=== PATIENT | male | born 1945 | race Caucasian/White ===

== ENCOUNTER → 2017-02-10 | Outpatient (CLI) | payer MEDICARE ==
--- NOTE | 2017-02-10 15:38 | FL ---
EXAMINATION: Upper GI with small bowel follow through DATE: 02/10/2017 CLINICAL INDICATION: 71-year-old male with dyskinesia, complains of esophageal spasms and pain with c old or carbonated beverages. COMPARISON: None Total Fluoroscopy Time: 1.9 minutes FINDINGS: The swallowing mechanism is normal and hypopharyngeal anatomy is preserved. The cervical and thoracic portions have a normal course and caliber. Mild intermittent tertiary peris taltic contractions. The mucosa is normal and no persistent filling defect is encountered. There is a small hiatal hernia and moderate to severe gastroesophageal reflux is seen when the patien t is supine with reflux nearly reaching the thoracic inlet. The stomach and duodenum are free of any persistent filling defect. There is mild diffuse gastric fol d thickening. IMPRESSION: 1. Small hiatal hernia and moderate to severe gastroesophageal reflux when the patient is supine. 2. Occasional mild tertiary peristaltic waves are seen in the esophagus. No imaging findings of esoph ageal spasm. 3. Mild diffuse gastric fold thickening could represent chronic gastritis. Clinically correlate.
== END | disposition home or self-care (01) ==
LOC: RADFLWHC 09:52
PROVIDERS: ATTEND Family Medicine
DX: K44.9 Diaphragmatic hernia without obstruction or gangrene (principal); K21.9 Gastro-esophageal reflux disease without esophagitis; K31.89 Other diseases of stomach and duodenum
CPT/HCPCS: 74246

== ENCOUNTER 2017-03-02 07:47 | Day surgery (SDC) | payer MEDICARE ==
[2017-02-25 13:42] VITALS: BMI 35.7
[~2017-03-02 07:47] MED LIST: LACTATED RINGERS 1,000 ML IV SCH; LIDOCAINE 1% 20 ML VIAL (10MG/ML) FOR IV START INTRADERMA PRN
[2017-03-02 08:19] VITALS: RESP 18; TEMP 97.2
[2017-03-02] MEDS ORDERED: LACTATED RINGERS 1,000 ML IV ONE (08:24)
[2017-03-02] MEDS ORDERED: PROPOFOL 10 MG/ML 20 ML VIAL IV ONE (08:28)
[2017-03-02] MEDS ORDERED: LIDOCAINE 1% INJ 10MG/ML (20 ML MDV) ONE (08:28)
--- NOTE | 2017-03-02 08:42 | P.OP ---
Date of Procedure: 03/02/17 Preoperative Diagnosis: GERD, dysphagia Postoperative Diagnosis: GERD, dysphagia, hiatal hernia, gastritis Procedure(s) Performed: EGD with biopsy Implants: Anesthesia: MAC Surgeon: Angelina Brock Pathology: other (Antrum, esophagus) Condition: stable Disposition: PACU Indications for Procedure: The patient presented with dysphagia symptoms in the mid chest and reflux. Operative Findings: He's taken to the endoscopy suite were gastroscope is passed off to the third and fourth portions of the duodenum. The pharynx unremarkable. The esophagus shows no evidence of significant esophagitis or mass lesion. No stricture. The scope passes easily. There is a small sliding hiatal hernia. He had tertiary contractions of the esophagus. Stomach has bile stained fluid present. There is some mild gastritis throughout. Cold biopsies were obtained in the antrum. The pylorus and duodenum are otherwise unremarkable. No evidence of mass lesion or ulcer. Tolerated the procedure without difficulty and was taken recovery room in satisfactory condition. We'll call with the report of biopsies. Description of Procedure: Plan - Discharge Summary Discharge Medication List Aspirin 81 mg PO DAILY 02/20/14 [History] Cholecalciferol [Vitamin D3] 2,000 unit PO DAILY 02/20/14 [History] Simvastatin [Zocor] 20 mg PO HS 02/20/14 [History] amLODIPine BESYLATE [Norvasc] 5 mg PO HS 02/20/14 [History] Losartan-Hctz 50-12.5 mg [Hyzaar 50-12.5] 1 each PO DAILY 04/08/14 [History] Naproxen Sodium [Aleve] 640 mg PO DAILY 02/25/17 [History] Omeprazole 40 mg PO DAILY 02/25/17 [History] Discharge Disposition: HOME SELF-CARE
[2017-03-02 09:21] VITALS: BP 129/88; PULSE 84
== END 2017-03-02 09:33 | disposition home or self-care (01) ==
LOC: ORWHC2ENDO 07:47
PROVIDERS: ATTEND Surgery
DX: K29.50 Unspecified chronic gastritis without bleeding (principal); K44.9 Diaphragmatic hernia without obstruction or gangrene; K22.4 Dyskinesia of esophagus; R13.10 Dysphagia, unspecified; Z85.51 Personal history of malignant neoplasm of bladder; I10 Essential (primary) hypertension; E78.5 Hyperlipidemia, unspecified; M19.90 Unspecified osteoarthritis, unspecified site; Z79.82 Long term (current) use of aspirin; Z79.1 Long term (current) use of non-steroidal anti-inflammatories (NSAID); Z79.899 Other long term (current) drug therapy; Z88.0 Allergy status to penicillin
CPT/HCPCS: 88305; 88342; 43239; J2001; J2704

== ENCOUNTER → 2017-03-28 | Outpatient (CLI) | payer MEDICARE ==
--- NOTE | 2017-03-28 13:17 | US ---
EXAMINATION TYPE: US gallbladder DATE OF EXAM: 03/28/2017 COMPARISON: NONE CLINICAL HISTORY: K21.9 MAEGAN; hiatal hernia; esophageal spasms,GERD EXAM MEASUREMENTS: Liver Length: 12.3 cm Gallbladder Wall: 0.3 cm CBD: 0.4 cm Right Kidney: 11.0 x 5.8 x 4.7 cm Large body habitus is noted. Pancreas: hyperechoic with tail obscured by overlying bowel gas. Nonspecific finding of hyperechoic appearance to the pancreas may been the basis of fatty infiltration or atrophic changes. Correlate c linically. Liver: poorly seen and scanned LLD and intercostally due to overlying bowel gas Gallbladder: wnl Evidence for sonographic Andersen's sign: No CBD: wnl Right Kidney: wnl IMPRESSION: 1. No definite acute process. Correlate clinically. Limited exam as discussed above.
== END | disposition home or self-care (01) ==
LOC: RADUSWWP 12:21
PROVIDERS: ATTEND Surgery
DX: K21.9 Gastro-esophageal reflux disease without esophagitis (principal)
CPT/HCPCS: 76705

== ENCOUNTER → 2017-04-13 | Outpatient (CLI) | payer MEDICARE ==
--- NOTE | 2017-04-13 08:32 | XR ---
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 COMPARISON: Previous study dated 09/27/2013. FINDINGS: There has been an interval interpedicular fusion at L3, L4 and L5 with spacing placement. There has been a previous left inguinal hernia repair. Osseous structures about the pelvis are normal. No fracture or dislocation is seen. Hip joints are re asonably well-maintained. There are small "bumps" on both femoral necks. IMPRESSION: 1. POSTSURGICAL CHANGE. 2. I CANNOT EXCLUDE THE EARLIEST FINDINGS OF FEMOROACETABULAR IMPINGEMENT SYNDROME. PLEASE CORRELATE CLINICALLY.
== END | disposition home or self-care (01) ==
LOC: RADXRMAIN 08:07
PROVIDERS: ATTEND Family Medicine
DX: M16.9 Osteoarthritis of hip, unspecified (principal); Z98.890 Other specified postprocedural states
CPT/HCPCS: 73521

== ENCOUNTER → 2017-08-26 | Outpatient (CLI) | payer MEDICARE ==
[2017-08-26 08:44] LABS: Appearance,Urine Clear (Clear); Bilirubin,Urine Negative (Negative); CH 32.4; CHCM 35.1; Glucose,Urine (UA) Negative (Negative); HCT 45.8 % (39.0-53.0); HDW 2.64; HGB 15.6 gm/dL (13.0-17.5); Ketones,Urine Negative (Negative); Leukocyte Esterase,Urine Negative (Negative); MCH 31.5 pg (25.0-35.0); MCV 92.7 fL (80.0-100.0); Mean Platelet Volume 7.1; Nitrite,Urine Negative (Negative); PH, Urine 6.5 (5.0-8.0); Protein,Urine Trace (Negative); RBC 4.94 m/uL (4.30-5.90); RDW 12.2 % (11.5-15.5); Specific Gravity,Urine 1.016 (1.001-1.035); UA Billing (MACRO vs. MICRO) CHEM; Urobilinogen,Urine <2.0 mg/dL (<2.0); WBC 7.5 k/uL (3.8-10.6)
[2017-08-26 08:53] LABS: Partial Thromboplastin Time 25.3 sec (22.0-30.0); Prothrombin Time 10.3 sec (9.0-12.0)
[2017-08-26 09:01] LABS: ALT 47 U/L (21-72); AST 34 U/L (17-59); Alkaline Phosphatase 59 U/L (38-126); Anion Gap 9 mmol/L; Blood Urea Nitrogen 25 mg/dL (9-20); Calcium 9.5 mg/dL (8.4-10.2); Carbon Dioxide 28 mmol/L (22-30); Chloride 104 mmol/L (98-107); Glucose 108 mg/dL (74-99); Non-African American GFR(MDRD) >60 (>60 ml/min/1.73 sqM); Potassium 4.1 mmol/L (3.5-5.1); Sodium 141 mmol/L (137-145); Total Bilirubin 0.5 mg/dL (0.2-1.3); Total Protein 7.1 g/dL (6.3-8.2)
== END | disposition home or self-care (01) ==
LOC: LABPAT 07:55
PROVIDERS: ATTEND Orthopaedic Surgery
DX: Z01.812 Encounter for preprocedural laboratory examination (principal)
CPT/HCPCS: 80053; 81003; 85027; 85610; 85730; 87070

== ENCOUNTER 2020-06-07 06:40 | Observation (INO) | payer MEDICARE ==
[2020-06-07] MEDS ORDERED: SODIUM CHLORIDE 0.9% 1,000 ML IV STA ×2 (06:59)
[2020-06-07] MEDS ORDERED: ASPIRIN 81 MG PO STA (06:59)
--- NOTE | 2020-06-07 07:04 | ED ---
Chest Pain HPI - General Chief Complaint: Chest Pain Stated Complaint: Chest pain Time Seen by Provider: 06/07/20 06:51 Source: patient, RN notes reviewed, old records reviewed Mode of arrival: ambulatory Limitations: no limitations - History of Present Illness Initial Comments: This patient's a 75-year-old male who presents emergency department today for evaluation for concern for waking up with a chest discomfort. He states it seems to the right side of his chest, and substernal. Patient states he's had no prior history of heart disease is not had a stress test. He does have a history of hypertension.. He states that he seems to have pain worse with inspiration. Denies any lower extremity swelling. Patient denies any nausea or vomiting associated symptoms. He reports pain does not seem to be worse with movement. He did take aspirin prior to arrival. - Related Data Home Medications Medication Instructions Recorded Confirmed Cholecalciferol [Vitamin D3] 2,000 unit PO DAILY 02/20/14 09/12/17 Simvastatin [Zocor] 20 mg PO HS 02/20/14 09/12/17 amLODIPine BESYLATE [Norvasc] 5 mg PO HS 02/20/14 09/12/17 Losartan-Hctz 50-12.5 mg [Hyzaar 1 tab PO DAILY 04/08/14 09/12/17 50-12.5] Omeprazole 40 mg PO DAILY 02/25/17 09/12/17 Previous Rx's Medication Instructions Recorded Aspirin 325 mg PO BID #120 tab 09/12/17 HYDROcodone/APAP 7.5-325MG [[place] 1 - 2 tab PO Q4-6H PRN #90 tab 09/12/17 7.5-325] Sennosides-Docusate Sodium 1 tab PO BID #60 tablet 09/12/17 [Senokot-S] Allergies Allergy/AdvReac Type Severity Reaction Status Date / Time Penicillins Allergy Unknown Verified 09/06/17 14:06 Childhood Review of Systems ROS Statement: Those systems with pertinent positive or pertinent negative responses have been documented in the HPI. ROS Other: All systems not noted in ROS Statement are negative. EKG Findings - EKG Comments: EKG Findings:: Ventricular rate of 114 beats were minute intervals 182 ms. QS Patient is a 92 ms. QT QTc is 324/446 most seconds. EKG shows sinus tachycardia. Left anterior fascicular block abnormal EKG. Past Medical History Past Medical History: Cancer, Hypertension Additional Past Medical History / Comment(s): BLADDER CA, benign skin lession removed left arm History of Any Multi-Drug Resistant Organisms: None Reported Past Surgical History: Orthopedic Surgery Additional Past Surgical History / Comment(s): JOSH CATARACTS REMOVED, LT RETINAL EYE SURGERY, PAIN CLINIC PROC., rt shoulder, rt knee arthroscopic, skin lession removed, back surgery fusion L3, L4 L4-5 Past Anesthesia/Blood Transfusion Reactions: No Reported Reaction Additional Past Anesthesia/Blood Transfusion Reaction / Comment(s): no hx blood transfusion Past Psychological History: No Psychological Hx Reported Smoking Status: Never smoker Past Alcohol Use History: None Reported Past Drug Use History: None Reported - Past Family History Mother Family Medical History: Cancer Additional Family Medical History / Comment(s): breast CA General Exam - General Exam Comments Initial Comments: Alert and oriented 75-year-old male. Limitations: no limitations General appearance: alert, in no apparent distress Head exam: Present: atraumatic, normocephalic, normal inspection Eye exam: Present: normal appearance, PERRL, EOMI. Absent: scleral icterus, conjunctival injection, periorbital swelling ENT exam: Present: normal exam, mucous membranes moist Neck exam: Present: normal inspection. Absent: tenderness, meningismus, lymphadenopathy Respiratory exam: Present: normal lung sounds bilaterally. Absent: respiratory distress, wheezes, rales, rhonchi, stridor Cardiovascular Exam: Present: regular rate, normal rhythm, normal heart sounds. Absent: systolic murmur, diastolic murmur, rubs, gallop, clicks GI/Abdominal exam: Present: soft, normal bowel sounds. Absent: distended, tenderness, guarding, rebound, rigid Extremities exam: Present: normal inspection, full ROM, normal capillary refill. Absent: tenderness, pedal edema, joint swelling, calf tenderness Back exam: Present: normal inspection Neurological exam: Present: alert, oriented X3, CN II-XII intact Psychiatric exam: Present: normal affect, normal mood Skin exam: Present: warm, dry, intact, normal color. Absent: rash Course Vital Signs 06/07/20 06/07/20 06:44 07:36 Temperature 98.1 F Pulse Rate 114 H 111 H Respiratory 16 18 Rate Blood Pressure 175/108 147/89 O2 Sat by Pulse 99 98 Oximetry Chest Pain MDM - MDM 75-year-old male presents for his pharmacy today for eval for concern for chest pain that woke him up today. He reports a dull ache in his chest. He states it seems to be worse with inspiration. He denies any coughing or shortness of breath. He has history of hypertension. Has not had a stress test past year. At this time Patient seen EKG is reviewed and showed sinus tachycardia with left anterior fascicular block. No ST changes. Patient was given IV fluids. Chest x-rays reviewed. Chest x-ray shows no evidence for acute cardio pulmonary disease. Patient's chest pain does not seem to be reproducible with muscle this time. Discussed concern for possible acute coronary syndrome since his chest pain and just started to repeat a troponin level. Patient is agreeable to this plan. Discussed case with Dr. Cottrell and discussed case with PCP for admission. Disposition Clinical Impression: Chest pain Disposition: ADMITTED IP TO THIS HOSP Condition: Good Instructions (If sedation given, give patient instructions): Costochondritis (E D) Is patient prescribed a controlled substance at d/c from ED?: No Referrals: Fahad Pichardo MD [Primary Care Provider] - 1-2 days Time of Disposition: 08:12
[2020-06-07 07:23] LABS: Basophils # (A) 0.1 k/uL (0-0.2); Basophils % (A) 1 %; Eosinophils # (A) 0.2 k/uL (0-0.7); Eosinophils % (A) 1 %; HCT 47.7 % (39.0-53.0); HGB 16.2 gm/dL (13.0-17.5); Lymphocytes # (A) 2.7 k/uL (1.0-4.8); Lymphocytes % (A) 21 %; MCH 31.3 pg (25.0-35.0); MCHC 33.9 g/dL (31.0-37.0); MCV 92.3 fL (80.0-100.0); Mean Platelet Volume 7.7; Monocytes # (A) 0.7 k/uL (0-1.0); Monocytes % (A) 5 %; Neutrophils # (A) 9.3 k/uL (1.3-7.7); Neutrophils % (A) 71 %; Platelet Count 228 k/uL (150-450); RBC 5.17 m/uL (4.30-5.90); RDW 12.5 % (11.5-15.5); WBC 13.1 k/uL (3.8-10.6)
--- NOTE | 2020-06-07 07:26 | XR ---
EXAMINATION TYPE: XR chest 2V DATE OF EXAM: 06/07/2020 COMPARISON: 04/01/2014 HISTORY: Shortness of breath TECHNIQUE: Frontal and lateral views of the chest are obtained. FINDINGS: Scattered senescent parenchymal changes noted. Hyperinflation compatible with COPD. No evidence for infiltrate. No evidence for atelectasis. Heart size is stable. Mediastinal structures are stable and grossly unremarkable. No evidence for hilar prominence. Degenerative changes dorsal spine. IMPRESSION: 1. No evidence for acute pulmonary disease.
[2020-06-07 07:45] LABS: D-Dimer 0.4 mg/L FEU (<0.60); INR 0.9 (<1.2); Partial Thromboplastin Time 25.2 sec (22.0-30.0); Prothrombin Time 9.7 sec (9.0-12.0)
[2020-06-07 07:49] LABS: Albumin 4.3 g/dL (3.5-5.0); Calcium 9.4 mg/dL (8.4-10.2); Magnesium 1.8 mg/dL (1.6-2.3); Potassium 3.8 mmol/L (3.5-5.1); Total Bilirubin 0.9 mg/dL (0.2-1.3); Total Protein 7.5 g/dL (6.3-8.2)
[2020-06-07] MEDS ORDERED: NITROGLYCERIN SL TABS 0.4 MG TAB SUBLINGUAL STA (08:07)
[2020-06-07] MEDS ORDERED: NITROGLYCERIN SL TABS 0.4 MG TAB SUBLINGUAL PRN (08:21)
--- NOTE | 2020-06-07 10:48 | P.CRDCN ---
History of Present Illness Consult date: 06/07/20 Requesting physician: Jaci Alarcon Consult reason: chest pain Chief complaint: Chest pain History of present illness: History of present illness: This is a 75-year-old male. He denies having any history of coronary artery disease, is not follow with a detective. He has had a stress test greater than 5 years ago reported as normal. He has never had a heart catheterization. He has a past medical history of hypertension and bladder cancer. Patient has never been a smoker, no alcohol use. No significant family history of coronary artery disease. Patient presented to [facility] emergency center due to chest pain in the midsternal area that started at 3 AM. Patient states it's worse when he takes a deep breath. He denies any radiation of the pain. No nausea or vomiting. No diaphoresis. No lower extremity edema. No palpitations. He is not sure if he was are awake or woke him from sleep. After that he got up and sat in a chair and could not get comfortable. He checked his blood pressure which was quite elevated and normally runs a normal range for him. Systolic was greater than 170 and diastolic greater than 100. His heart rate was in the 130s and he decided he needed to come in to the hospital. Initial blood pressure 175/108 and heart rate 114 He was given nitroglycerin in the emergency center that did not make any change in his chest pain. Troponins have been negative on 2 draws. Electrolytes and renal function and normal. Liver function tests normal. WBC is 13.1 and hemoglobin 16.2. EKG was a sinus tachycardia with left anterior fascicular block. Chest x-ray shows no acute cardiopulmonary process. Review Of Systems: Constitutional: No fever, no chills. No weakness, fatigue or lethargy. EENT: No headache. No dizziness. Lungs: No shortness of breath, cough, no sputum production. No wheezing. Cardiovascular: Reports chest pain, no lower extremity edema. No palpitations. No paroxysmal nocturnal dyspnea. No orthopnea. No lightheadedness or dizziness. No syncopal episodes. Abdominal: No abdominal pain. No nausea, vomiting. No diarrhea. No constipation. No bloody or tarry stools.. No loss of appetite. Genitourinary: No dysuria, increased frequency, urgency. No urinary retention. Musculoskeletal: No myalgias. No muscle weakness, no gait dysfunction, no frequent falls. No back pain. No neck pain. Integumentary: No wounds, no lesions. No rash or pruritus. No unusual bruising. Neurologic: No aphasia. No facial droop. No change in mentation. No head injury. No headache. No paralysis. No paresthesia. Psychiatric: No depression. No anxiety. Endocrine: No abnormal blood sugars. Physical examination: Gen: This is a 75-year-old male. Patient is resting in bed and appears to be comfortable and in no acute distress. VS: Afebrile, heart rate 98, blood pressure 131/76, pulse ox 98% on room air. HEENT: Head is atraumatic, normocephalic. Pupils equal, round. Sclerae is anicte hollis. NECK: Supple. No JVD. No lymphadenopathy. No thyromegaly. LUNGS: Clear to auscultation. No wheezes or rhonchi. No intercostal retractions. HEART: Regular rate and rhythm. No murmur. No tenderness with palpation. ABDOMEN: Soft. Bowel sounds are present. No masses. No tenderness. EXTREMITIES: No pedal edema. No calf tenderness. Dorsalis pedis palpable bilaterally. NEUROLOGICAL: Patient is awake, alert and oriented x3. Cranial nerves 2 through 12 are grossly intact. Assessment: Chest pain with deep inspiration Negative troponins, acute coronary syndrome ruled out Hypertension Tachycardia Plan: Patient is cleared for discharge home Follow up outpatient for stress test and echocardiogram Thank you kindly for this consultation Nurse practitioner note has been reviewed, I agree with documented findings and plan of care. Patient was seen and examined. Past Medical History Past Medical History: Cancer, Hypertension Additional Past Medical History / Comment(s): BLADDER CA, benign skin lession removed left arm History of Any Multi-Drug Resistant Organisms: None Reported Past Surgical History: Orthopedic Surgery Additional Past Surgical History / Comment(s): JOSH CATARACTS REMOVED, LT RETINAL EYE SURGERY, PAIN CLINIC PROC., rt shoulder, left total knee, skin lession removed, back surgery fusion L3, L4 L4-5 Past Anesthesia/Blood Transfusion Reactions: No Reported Reaction Additional Past Anesthesia/Blood Transfusion Reaction / Comment(s): no hx blood transfusion Past Psychological History: No Psychological Hx Reported Smoking Status: Never smoker Past Alcohol Use History: None Reported Past Drug Use History: None Reported - Past Family History Mother Family Medical History: Cancer Additional Family Medical History / Comment(s): breast CA Medications and Allergies Home Medications Medication Instructions Recorded Confirmed Type Cholecalciferol [Vitamin D3] 2,000 unit PO DAILY 02/20/14 06/07/20 History amLODIPine BESYLATE [Norvasc] 5 mg PO HS 02/20/14 06/07/20 History Aspirin [[place] Aspirin EC] 81 mg PO HS 06/07/20 06/07/20 History Losartan [Cozaar] 50 mg PO DAILY 06/07/20 06/07/20 History Allergies Allergy/AdvReac Type Severity Reaction Status Date / Time Penicillins Allergy Unknown Verified 06/07/20 10:46 Childhood Physical Exam Vitals: Vital Signs Temp Pulse Pulse Resp BP BP Pulse Ox 06/07/20 09:55 97.9 F 98 16 131/76 98 06/07/20 08:25 98.1 F 101 H 18 147/95 97 06/07/20 07:36 111 H 18 147/89 98 06/07/20 06:44 98.1 F 114 H 16 175/108 99 Intake and Output 06/06/20 06/07/20 06/07/20 22:59 06:59 14:59 Other: Voiding Method Toilet Weight 74.389 kg 74.389 kg Results 06/07/20 07:03 06/07/20 07:03 Cardiac Enzymes 06/07/20 06/07/20 Range/Units 07:03 07:03 AST 37 (17-59) U/L Troponin I <0.012 (0.000-0.034) ng/mL Coagulation 06/07/20 Range/Units 07:03 PT 9.7 (9.0-12.0) sec APTT 25.2 (22.0-30.0) sec CBC 06/07/20 Range/Units 07:03 WBC 13.1 H (3.8-10.6) k/uL RBC 5.17 (4.30-5.90) m/uL Hgb 16.2 (13.0-17.5) gm/dL Hct 47.7 (39.0-53.0) % Plt Count 228 (150-450) k/uL Comprehensive Metabolic Panel 06/07/20 Range/Units 07:03 Sodium 137 (137-145) mmol/L Potassium 3.8 (3.5-5.1) mmol/L Chloride 102 (98-107) mmol/L Carbon Dioxide 27 (22-30) mmol/L BUN 25 H (9-20) mg/dL Creatinine 1.12 (0.66-1.25) mg/dL Glucose 117 H (74-99) mg/dL Calcium 9.4 (8.4-10.2) mg/dL AST 37 (17-59) U/L ALT 22 (4-49) U/L Alkaline Phosphatase 62 (38-126) U/L Total Protein 7.5 (6.3-8.2) g/dL Albumin 4.3 (3.5-5.0) g/dL Current Medications Generic Name Dose Route Start Last Admin Trade Name Freq PRN Reason Stop Dose Admin Aspirin 325 mg 06/08/20 09:00 Aspirin PO DAILY RODRIGO Sodium Chloride 1,000 mls @ 100 mls/hr 06/07/20 06:59 06/07/20 07:39 Saline 0.9% IV 06/07/20 16:58 100 mls/hr .Q10H STA Administration Nitroglycerin 0.4 mg 06/07/20 08:21 Nitrostat SUBLINGUAL Q5M PRN Chest Pain Intake and Output 06/06/20 06/07/20 06/07/20 22:59 06:59 14:59 Other: Voiding Method Toilet Weight 74.389 kg 74.389 kg Patient Weight 06/08/20 06:59 Weight 74.389 kg 06/07/20 07:03 06/07/20 07:03
--- NOTE | 2020-06-07 13:20 | P.HPIM ---
History of Present Illness This is a pleasant 75 years old male with past medical history of hypertension and urinary bladder cancer. Presents because of chest pain which started 3:00 this morning, centrally radiating between both shoulder blades, felt like DL about 4-5/10 in severity did not associated with dyspnea, sweating, vomiting, palpitation or dizziness. Patient denies smoking, alcohol or illicit drug. He follows up with Dr. Pichardo. It is slightly tachycardic 101/111. Rest of vitals are stable. Afebrile. He has mild leukocytosis of 13.1 K, rest of CBC, BMP, liver enzymes were unremarkable. D-dimer is -0.4 Troponin 2 are negative less than 0.012. Chest x-ray: No acute process. EKG showing sinus tachycardia at [address]-T changes. He was started on aspirin in the emergency room and get some fluids of normal saline. Review of Systems CONSTITUTIONAL: No fever, no malaise, no fatigue. HEENT: No recent visual problems or hearing problems. Denied any sore throat. CARDIOVASCULAR: No orthopnea, PND, no palpitations, no syncope. PULMONARY: No shortness of breath, no cough, no hemoptysis. GASTROINTESTINAL: No diarrhea, no nausea, no vomiting, no abdominal pain. Normoactive bowel sounds. NEUROLOGICAL: No headaches, no weakness, no numbness. HEMATOLOGICAL: Denies any bleeding or petechiae. GENITOURINARY: Denies any burning micturition, frequency, or urgency. MUSCULOSKELETAL/RHEUMATOLOGICAL: Denies any joint pain, swelling, or any muscle pain. ENDOCRINE: Denies any polyuria or polydipsia. Past Medical History Past Medical History: Cancer, Hypertension Additional Past Medical History / Comment(s): BLADDER CA, benign skin lession removed left arm History of Any Multi-Drug Resistant Organisms: None Reported Past Surgical History: Orthopedic Surgery Additional Past Surgical History / Comment(s): JOSH CATARACTS REMOVED, LT RETINAL EYE SURGERY, PAIN CLINIC PROC., rt shoulder, left total knee, skin lession removed, back surgery fusion L3, L4 L4-5 Past Anesthesia/Blood Transfusion Reactions: No Reported Reaction Additional Past Anesthesia/Blood Transfusion Reaction / Comment(s): no hx blood transfusion Past Psychological History: No Psychological Hx Reported Smoking Status: Never smoker Past Alcohol Use History: None Reported Past Drug Use History: None Reported - Past Family History Mother Family Medical History: Cancer Additional Family Medical History / Comment(s): breast CA Medications and Allergies Home Medications Medication Instructions Recorded Confirmed Type Cholecalciferol [Vitamin D3] 2,000 unit PO DAILY 02/20/14 06/07/20 History amLODIPine BESYLATE [Norvasc] 5 mg PO HS 02/20/14 06/07/20 History Aspirin [[place] Aspirin EC] 81 mg PO HS 06/07/20 06/07/20 History Losartan [Cozaar] 50 mg PO DAILY 06/07/20 06/07/20 History Allergies Allergy/AdvReac Type Severity Reaction Status Date / Time Penicillins Allergy Unknown Verified 06/07/20 10:46 Childhood Physical Exam Vitals: Vital Signs Temp Pulse Pulse Resp BP BP Pulse Ox 06/07/20 09:55 97.9 F 98 16 131/76 98 06/07/20 08:25 98.1 F 101 H 18 147/95 97 06/07/20 07:36 111 H 18 147/89 98 06/07/20 06:44 98.1 F 114 H 16 175/108 99 Intake and Output 06/06/20 06/07/20 06/07/20 22:59 06:59 14:59 Other: Voiding Method Toilet Weight 74.389 kg 74.389 kg GENERAL: The patient is alert and oriented x3, not in any acute distress. Well developed, well nourished. HEENT: Pupils are round and equally reacting to light. EOMI. No scleral icterus. No conjunctival pallor. Normocephalic, atraumatic. No pharyngeal erythema. No thyromegaly. CARDIOVASCULAR: S1 and S2 present. No murmurs, rubs, or gallops. PULMONARY: Chest is clear to auscultation, no wheezing or crackles. ABDOMEN: Soft, nontender, nondistended, normoactive bowel sounds. No palpable organomegaly. MUSCULOSKELETAL: No joint swelling or deformity. EXTREMITIES: No cyanosis, clubbing, or pedal edema. NEUROLOGICAL: Gross neurological examination did not reveal any focal deficits. SKIN: No rashes. No petechiae Results CBC & Chem 7: 06/07/20 07:03 06/07/20 07:03 Labs: Abnormal Lab Results - Last 24 Hours (Table) 06/07/20 06/07/20 Range/Units 07:03 07:03 WBC 13.1 H (3.8-10.6) k/uL Neutrophils # 9.3 H (1.3-7.7) k/uL BUN 25 H (9-20) mg/dL Glucose 117 H (74-99) mg/dL Thrombosis Risk Factor Assmnt - Choose All That Apply Any of the Below Risk Factors Present?: No Other Risk Factors: Yes Each Risk Factor Represents 2 Points: Age 61-74 years Other congenital or acquired thrombophilia - If yes, enter type in comment: No Thrombosis Risk Factor Assessment Total Risk Factor Score: 2 Thrombosis Risk Factor Assessment Level: Low Risk Assessment and Plan Assessment: Chest pain, rule out cardiac causes. Negative d-dimer 0.4 Hypertension History of bladder cancer Plan: This is a pleasant 75 years old male who presents with chest pain. With the sut ure troponin. Continue with aspirin. Cardiology consult Labs and medication were reviewed.. Continue same treatment. Continue with symptomatic treatment. Resume home medication. Monitor lytes and vitals. DVT and GI prophylaxis. Further recommendations of the clinical course of the patient DVT prophylaxis: Subcutaneous heparin GI Prophylaxis: Pepcid PT/OT: Pending Prognosis is guarded
[2020-06-07 18:18] LABS: Appearance,Urine Clear (Clear); Bacteria,Urine Rare /hpf; Bilirubin,Urine Negative (Negative); Blood,Urine Small (Negative); Color,Urine Light Yellow; Glucose,Urine (UA) 1+ (Negative); Ketones,Urine 1+ (Negative); Leukocyte Esterase,Urine Negative (Negative); Mucus,Urine Rare /hpf; Nitrite,Urine Negative (Negative); PH, Urine 5.5 (5.0-8.0); Protein,Urine Trace (Negative); RBC,Urine 4 /hpf (0-5); Specific Gravity,Urine 1.014 (1.001-1.035); Urobilinogen,Urine <2.0 mg/dL (<2.0); WBC,Urine <1 /hpf (0-5)
[2020-06-07] MEDS ORDERED: amLODIPine 5 MG TAB PO SCH (21:00)
[2020-06-07] MEDS ORDERED: NON FORMULARY DRUG (Aspirin [St. Joseph Aspirin Ec] 81 MG) PO SCH (21:00)
[2020-06-07] MEDS: HEPARIN SODIUM,PORCINE 5,000 UNIT/ML 1 ML VIAL SQ SCH (22:21)
[2020-06-08 04:24] VITALS: RESP 16
[2020-06-08 07:10] LABS: Basophils % (A) 0 %; Eosinophils % (A) 0 %; HCT 43.6 % (39.0-53.0); HGB 14.4 gm/dL (13.0-17.5); Lymphocytes % (A) 20 %; MCH 30.5 pg (25.0-35.0); MCHC 32.9 g/dL (31.0-37.0); MCV 92.6 fL (80.0-100.0); Mean Platelet Volume 7.7; Monocytes # (A) 0.8 k/uL (0-1.0); Monocytes % (A) 8 %; Neutrophils # (A) 6.9 k/uL (1.3-7.7); Neutrophils % (A) 69 %; Platelet Count 197 k/uL (150-450); RBC 4.71 m/uL (4.30-5.90); RDW 12.4 % (11.5-15.5); WBC 9.9 k/uL (3.8-10.6)
[2020-06-08 07:21] LABS: Cholesterol 183 mg/dL (<200); HDL Cholesterol 74 mg/dL (40-60); LDL Cholesterol,Calculated 98 mg/dL (0-99); Triglycerides 57 mg/dL (<150)
[2020-06-08 08:48] VITALS: BP 146/83; PULSE 102; TEMP 98
[2020-06-08] MEDS ORDERED: LOSARTAN 50 MG TAB PO SCH (09:00)
[2020-06-08] MEDS ORDERED: FAMOTIDINE 20 MG/2 ML VIAL IV SCH (09:00)
[2020-06-08] MEDS ORDERED: ASPIRIN 325 MG TAB PO SCH (09:00)
[2020-06-08] MEDS: HEPARIN SODIUM,PORCINE 5,000 UNIT/ML 1 ML VIAL SQ SCH (09:19)
[2020-06-08] MEDS ORDERED: AZITHROMYCIN 500 MG TAB PO SCH (10:15)
--- NOTE | 2020-06-08 10:21 | P.DS ---
Providers Date of admission: 06/07/20 08:21 Attending physician: Nishant Thomas MD Consults: 06/07/20 08:21 Consult Physician Urgent Consulting Provider: Fabian pSarks Consult Reason/Comments: chest pain Do you want consulting provider notified?: Yes Primary care physician: Fahad Pichardo Hospital Course: Diagnoses: Acute bronchitis Chest pain, secondary to bronchitis, improved. Distribution Spec evaluated the patient and recommended outpatient stress test and echo and patient agrees Hypertension History of bladder cancer Hospital course: This is a pleasant 75 years old male with past medical history of hypertension and urinary bladder cancer. Presents because of chest pain which started 3:00 this morning, centrally radiating between both shoulder blades, felt like DL about 4-5/10 in severity did not associated with dyspnea, sweating, vomiting, palpitation or dizziness. Patient denies smoking, alcohol or illicit drug. He follows up with Dr. Pichardo. It is slightly tachycardic 101/111. Rest of vitals are stable. Afebrile. He has mild leukocytosis of 13.1 K, rest of CBC, BMP, liver enzymes were unremarkable. D-dimer is -0.4 Troponin 2 are negative less than 0.012. Chest x-ray: No acute process. EKG showing sinus tachycardia at [address]-T changes. He was started on aspirin in the emergency room and get some fluids of normal saline. Distribution Spec evaluated the patient and recommended outpatient echo and stress test and patient agrees. Patient chest pain improved. Distal have some difficulty getting air and although there is no wheezing and no shortness of breath and he is saturating 97% on room air. He had WBC came back to normal at 9K, Procalcitonin is slightly elevated at 0.19. Patient was provided with short course of antibiotics upon discharge Patient was cleared for discharge by junior recruiter Problems and management plan were discussed with the patient and he verbalized understanding and acceptance Patient was found stable and can be discharged home however he needs follow-up as an outpatient. Patient was instructed to follow up with PCP Dr. Pichardo within one week and patient agrees. Patient was instructed to follow up with Dr. Sparks in 1-2 weeks for outpatient stress test and patient agrees to call and make appointments as today is weakened Gen: patient is a AAOx3, no distress CVS: S1-S2, RRR, no murmur Lungs: B/L CTA, no wheezing Abdomen: soft, no distention, no tenderness, positive bowel sounds Extremity: no leg edema or induration Time spent more than 35 minutes Patient Condition at Discharge: Good Plan - Discharge Summary Discharge Rx Participant: No New Discharge Prescriptions: New Aspirin 325 mg PO DAILY #30 tab Nitroglycerin Sl Tabs [Nitrostat] 0.4 mg SUBLINGUAL Q5M PRN #20 tab PRN Reason: Chest Pain Famotidine [Pepcid] 20 mg PO BID 21 Days #42 tablet Continue amLODIPine BESYLATE [Norvasc] 5 mg PO HS Cholecalciferol [Vitamin D3 (25 Mcg = 1000 Iu)] 2,000 unit PO DAILY Losartan [Cozaar] 50 mg PO DAILY Discontinued Aspirin [[place] Aspirin EC] 81 mg PO HS Discharge Medication List Cholecalciferol [Vitamin D3 (25 Mcg = 1000 Iu)] 2,000 unit PO DAILY 02/20/14 [History] amLODIPine BESYLATE [Norvasc] 5 mg PO HS 02/20/14 [History] Losartan [Cozaar] 50 mg PO DAILY 06/07/20 [History] Aspirin 325 mg PO DAILY #30 tab 06/08/20 [Rx] Famotidine [Pepcid] 20 mg PO BID 21 Days #42 tablet 06/08/20 [Rx] Nitroglycerin Sl Tabs [Nitrostat] 0.4 mg SUBLINGUAL Q5M PRN #20 tab 06/08/20 [Rx] Follow up Appointment(s)/Referral(s): Fahad Pichardo MD [Primary Care Provider] - 1-2 days Fabian Sparks DO [STAFF PHYSICIAN] - 1 Week (junior recruiter--outpatient stress test and echo. ) Patient Instructions/Handouts: Costochondritis (ED) Activity/Diet/Wound Care/Special Instructions: Heart healthy diet Activity is limited till you see your doctor Discharge Disposition: HOME SELF-CARE
[2020-06-08] MEDS ORDERED: LEVOFLOXACIN 500 MG TAB PO SCH (11:00)
[2020-06-08] MEDS ORDERED: FAMOTIDINE 20 MG TAB PO SCH (21:00)
== END 2020-06-08 10:52 | disposition home or self-care (01) ==
LOC: EC 06:40 → 3NCARDOBS 08:21
PROVIDERS: ADMIT Internal Medicine; ATTEND Internal Medicine
DX: J20.9 Acute bronchitis, unspecified (principal); I10 Essential (primary) hypertension; Z85.51 Personal history of malignant neoplasm of bladder; R00.0 Tachycardia, unspecified; I44.4 Left anterior fascicular block; R94.31 Abnormal electrocardiogram [ECG] [EKG]; Z98.1 Arthrodesis status; Z79.82 Long term (current) use of aspirin; Z79.899 Other long term (current) drug therapy; Z88.0 Allergy status to penicillin; Z80.3 Family history of malignant neoplasm of breast
CPT/HCPCS: 93005 ×2; 96361 ×2; 96372 ×2; 96374; 99285; 36415; 85379; 83880; 80061; 80053; 84443; 83735; 84484; 85025 ×2; 85610; 85730; 81001; 84145; 71046; G0378 ×2; J1644 ×2

== ENCOUNTER → 2021-01-27 | Outpatient (CLI) | payer MEDICARE | END | disposition home or self-care (01) | LOC: RADECHMAIN 10:06 | PROVIDERS: ATTEND Nurse Practitioner | DX: R00.2 Palpitations (principal) | CPT/HCPCS: 93270 ==

== ENCOUNTER 2022-11-02 09:24 | Day surgery (SDC) | payer MEDICARE ==
[~2022-11-02 09:24] MED LIST changes: -LIDOCAINE 1% 20 ML VIAL (10MG/ML) FOR IV START INTRADERMA PRN
[2022-11-02 10:05] VITALS: TEMP 97.2
[2022-11-02] MEDS ORDERED: PROPOFOL 10 MG/ML 20 ML VIAL IV ONE (10:39)
--- NOTE | 2022-11-02 10:42 | P.GSHP ---
History of Present Illness H&P Date: 11/02/22 Chief Complaint: Colon cancer screening 77-year-old male here today for colonoscopy. Last colonoscopy 20 years ago. No bowel complaints. No family history of colon cancer. Past Medical History Past Medical History: Cancer, Hypertension Additional Past Medical History / Comment(s): BLADDER CA, benign skin lession removed left arm History of Any Multi-Drug Resistant Organisms: None Reported Past Surgical History: Back Surgery, Hernia Repair, Orthopedic Surgery, Tonsillectomy Additional Past Surgical History / Comment(s): JOSH CATARACTS REMOVED, LT RETINAL EYE SURGERY, PAIN CLINIC PROC., rt shoulder, left total knee, skin lession removed, back surgery fusion L3, L4 L4-5 septoplasty x2, Past Anesthesia/Blood Transfusion Reactions: No Reported Reaction Additional Past Anesthesia/Blood Transfusion Reaction / Comment(s): no hx blood transfusion Smoking Status: Never smoker - Past Family History Mother Family Medical History: Cancer Additional Family Medical History / Comment(s): breast CA Medications and Allergies Home Medications Medication Instructions Recorded Confirmed Type Cholecalciferol [Vitamin D3 (25 50 mcg PO DAILY 02/20/14 11/02/22 History Mcg = 1000 Iu)] Losartan [Cozaar] 100 mg PO DAILY 06/07/20 11/02/22 History Albuterol Inhaler [Ventolin Hfa 1 puff INHALATION Q6HR PRN #1 inh 06/08/2010/17 Rx Inhaler] Famotidine [Pepcid] 20 mg PO BID 21 Days #42 tablet 06/08/20 11/02/22 Rx Nitroglycerin Sl Tabs [Nitrostat] 0.4 mg SUBLINGUAL Q5M PRN #20 tab 06/08/20 11/02/22 Rx Aspirin 81 mg PO DAILY 10/28/22 11/02/22 History Simvastatin [Zocor] 20 mg PO HS 10/28/22 11/02/22 History Allergies Allergy/AdvReac Type Severity Reaction Status Date / Time Penicillins Allergy Unknown Verified 11/02/22 10:07 Childhood Surgical - Exam Vital Signs Temp Pulse Resp BP Pulse Ox 97.2 F L 87 18 171/87 99 11/02/22 09:55 11/02/22 09:55 11/02/22 09:55 11/02/22 09:55 11/02/22 09:55 Physical exam: General: Well-developed, well-nourished HEENT: Normocephalic, sclerae nonicteric Abdomen: Nontender, nondistended Extremities: No edema Neuro: Alert and oriented Assessment and Plan (1) Colon cancer screening Narrative/Plan: Will proceed with colonoscopy at this time. Current Visit: Yes Status: Acute Code(s): Z12.11 - ENCOUNTER FOR SCREENING FOR MALIGNANT NEOPLASM OF COLON SNOMED Code(s): 864922130
--- NOTE | 2022-11-02 11:14 | P.PCN ---
Date of Procedure: 11/02/22 Procedure(s) Performed: PREOPERATIVE DIAGNOSIS: Colon cancer screening POSTOPERATIVE DIAGNOSIS: Colon polyps, diverticulosis PROCEDURE: Colonoscopy with snare polypectomy ANESTHESIA: MAC SURGEON: Shoaib Villalobos M.D. SPECIMENS: Polyps ENDOSCOPIC PROCEDURE: The patient was placed on the endoscopy table in the left decubitus position. The Olympus colonoscope was inserted into the anus and passed under direct visualization to the base of the cecum. The appendiceal orifice was visualized. From that point the scope was slowly withdrawn inspecting all surfaces carefully. There were no neoplastic inflammatory or polypoid lesions throughout the cecum. In the ascending colon 2 small polyps were seen and removed using the snare with cautery technique. In the transverse colon 2 small polyps were again seen and removed using the snare with cautery technique. The remainder of the transverse descending sigmoid and rectum appeared normal. There was mild left-sided diverticulosis present. Digital rectal examination was normal. The patient was taken to the recovery room in stable condition per anesthesia guidelines. RECOMMENDATIONS: Resume diet. Await pathology report. Repeat colonoscopy 5 years.
[2022-11-02 11:33] VITALS: BP 160/80; PULSE 94; RESP 15
== END 2022-11-02 12:05 | disposition home or self-care (01) ==
LOC: ORWHC2ENDO 09:24
PROVIDERS: ATTEND Surgery
DX: Z12.11 Encounter for screening for malignant neoplasm of colon (principal); D12.3 Benign neoplasm of transverse colon; K57.30 Diverticulosis of large intestine without perforation or abscess without bleeding; I10 Essential (primary) hypertension; Z98.890 Other specified postprocedural states; Z90.89 Acquired absence of other organs; Z98.41 Cataract extraction status, right eye; Z98.42 Cataract extraction status, left eye; Z85.51 Personal history of malignant neoplasm of bladder; Z80.3 Family history of malignant neoplasm of breast; Z79.82 Long term (current) use of aspirin; Z79.899 Other long term (current) drug therapy; Z88.0 Allergy status to penicillin
CPT/HCPCS: 45385; J2704; 88305

== ENCOUNTER → 2024-01-16 | Outpatient (CLI) | payer MEDICARE | END | disposition home or self-care (01) | LOC: LABWHC1 09:27 | PROVIDERS: ATTEND Ophthalmology | DX: G70.00 Myasthenia gravis without (acute) exacerbation (principal) | CPT/HCPCS: 36415; 86041 ==

== ENCOUNTER → 2024-01-23 | Outpatient (CLI) | payer MEDICARE ==
--- NOTE | 2024-01-23 19:58 | US ---
EXAMINATION TYPE: US carotid duplex BILAT DATE OF EXAM: 01/23/2024 COMPARISON: NONE CLINICAL INDICATION: Male, 78 years old with history of H53.10 UNSPECIFIED SUBJECTIVE VISUAL DISTURBA NCES; double vision TECHNIQUE: Carotid duplex ultrasound examination. Indirect Doppler criteria was utilized. FINDINGS: EXAM MEASUREMENTS: RIGHT: Peak Systolic Velocity (PSV) cm/sec ----- Right CCA: 113 ----- Right ICA: 95.1 ----- Right ECA: 116 ICA/CCA ratio: 0.84 RIGHT: End Diastole cm/sec ----- Right CCA: 32.6 ----- Right ICA: 34.9 ----- Right ECA: 19.7 LEFT: Peak Systolic Velocity (PSV) cm/sec ----- Left CCA: 103 ----- Left ICA: 103 ----- Left ECA: 97.3 ICA/CCA ratio: 1.0 LEFT: End Diastole cm/sec ----- Left CCA: 26.9 ----- Left ICA: 42.5 ----- Left ECA: 16.7 VERTEBRALS (direction of flow): Right Vertebral: Antegrade Left Vertebral: Antegrade Rhythm: Normal PONY WORKER NOTES: Minimal plaque bilateral bifurcations. No evidence of increased velocities IMPRESSION: Less than 50% stenosis of the bilateral carotid bifurcations. Criteria for Assigning % of Stenosis / Diameter reduction (Estimation based on the indirect measurements of the internal carotid artery velocities (ICA PSV). 1. Normal (no stenosis)=ICA PSV < 125 cm/s: ratio < 2.0: ICA EDV<40 cm/s. 2. Less than 50% stenosis=ICA PSV < 125 cm/s: ratio < 2.0: ICA EDV<40 cm/s. 3. 50 to 69% stenosis=ICA PSV of 125 to 230 cm/s: ration 2.0 ? 4.0: ICA EDV 40-100 cm/s. 4. Greater than 70% stenosis to near occlusion= ICA PSV > 230 cm/s: ratio > 4.0: ICA EDV > 100 cm/s. 5. Near occlusion= ICA PSV velocities may be low or undetectable: variable ratio and ICA EDV. 6. Total occlusion=unable to detect flow.
== END | disposition home or self-care (01) ==
LOC: RADUSWWP 07:36
PROVIDERS: ATTEND Family Medicine
DX: I65.23 Occlusion and stenosis of bilateral carotid arteries (principal); H53.10 Unspecified subjective visual disturbances; H53.2 Diplopia
CPT/HCPCS: 93880

== ENCOUNTER → 2024-05-22 | Outpatient (CLI) | payer MEDICARE | END | disposition home or self-care (01) | LOC: LABPRL 12:34 | PROVIDERS: ATTEND Family Medicine | CPT/HCPCS: 80053; 84153; 85025 ==